=== PATIENT | female | born 1990 | race Caucasian/White ===

== ENCOUNTER 2023-10-17 12:24 | Inpatient (IN) | payer OTHER ==
--- NOTE | 2023-10-16 22:25 | NUR ---
Pt deep breathing and focussing with contractions. SVE as noted, tolerates SVE without without flinching. 2228 Anesthesia in room, epidural bolus per pump.
[~2023-10-17] VITALS: Ht 157.5 cm; Wt 93.2 kg
[2023-10-17] VITALS (26 sets, daily range): BP systolic 102–147; BP diastolic 56–89; PULSE 60–97; TEMP 97.7–98.8
[2023-10-17] MEDS ORDERED: PRENATAL TABLET PO (12:47)
[2023-10-17] MEDS ORDERED: TYLENOL 325MG325 MG PO (12:47)
[2023-10-17] MEDS ORDERED: PROFERRIN ES12 MG PO (12:47)
[2023-10-17] MEDS ORDERED: LR 1,000 ML IV SCH (13:15)
[2023-10-17] MEDS ORDERED: LR & Oxytocin 500 ML IV SCH (13:15)
[2023-10-17 14:10] LABS: BASO % 0.3 % (0.0-2.0); EOS % 0.3 % (0.0-4.0); GRAN # 5.1 K/mm3 (1.4-6.5); HEMOGLOBIN 12.5 g/dl (12.5-16.0); LYMPH # 1.5 K/mm3 (1.2-3.4); LYMPH % 20.4 % (20.0-51.0); MEAN CELL VOLUME 89 fl (80.0-100.0); MEAN CORPUSCULAR HEMOGLOBIN 31 pg (27-31); MEAN CORPUSCULAR HGB CONC 34 g/dl (33.0-37.0); MONO # 0.6 K/mm3 (0.1-0.6); MONO % 8.6 % (1.7-9.3); PLATELET COUNT 209 K/mm3 (130-400); REDCELL DISTRIBUTION WIDTH-CV 13.9 % (11.5-14.5)
[2023-10-17 14:11] LABS: HEMATOCRIT 36.5 % (37.0-47.0)
--- NOTE | 2023-10-17 17:23 | NUR ---
PATIENT HAD A 4 CTX IN A ROW THAT WERE 1 MIN APART THAT DID NOT GO DOWN TO BASELINE AND THEN BABY HAD A PROLONGED DECELERATION FROM 1641 TILL 1646. PATIENT WAS MOVED FROM SITTING TO STANDING POSITION AT 1642, THEN LEFT SIDE LYING POSITION AT 1643 AND THEN KNEE CHEST POSITION AT 1645. PITOCIN WAS OFF AT 1645. BABYS HEART RATE RECOVERED AND PATIENT STAYED IN KNEE CHEST UNTIL 1710. THEN PATIENT MOVED TO BATHROOM TO VOID. PATIENTS FHT'S RECOVERED AND ACCELS NOTED AT 1703 AND 1704. WILL CONTINUE TO MONITOR
--- NOTE | 2023-10-17 19:18 | NUR ---
pt standing at bedside, FHt's to 70's with loss of tracing. briefly returns to baseline. to bathroom then into bed. To WR Deceleration to 70's returns to baseline after 60seconds at aman. To LL.
--- NOTE | 2023-10-17 19:45 | NUR ---
Dr Guzman at bedside, views FHT's, reviews plan of care, questions invited and answered.
--- NOTE | 2023-10-17 20:49 | NUR ---
Off monitor, up to bathroom. Pt deep breathing with ctx. Reports ctx pain a 5 on 1-10 scale. attentive at bedside.
--- NOTE | 2023-10-17 21:48 | NUR ---
C.Nataly VP [employer] into room for epidural placement. Pt moved to edge of epidural placement. EFM tracing maternal HR .
[2023-10-17] MEDS ORDERED: ROPivacaine PF 0.2% 200 ML IV ONE (21:59)
[2023-10-17] MEDS ORDERED: ePHEDrine 50 MG/10 ML VIAL IV PRN (22:30)
[2023-10-17] MEDS ORDERED: diphenhydrAMINE 50 MG/ML 1 ML VIAL IV PRN (22:30)
[2023-10-17] MEDS ORDERED: Ondansetron 4 MG/2 ML VIAL IV PRN (22:30)
[2023-10-17] MEDS ORDERED: Naloxone 0.4 MG/ML VIAL IV PRN (22:30)
[2023-10-17] MEDS ORDERED: diphenhydrAMINE 25 MG CAP PO PRN (22:30)
--- NOTE | 2023-10-17 22:47 | NUR ---
FHT's to 70's x 40 seconds, rebounds to 100's for 50 seconds, to SF, then rl to 60's x 70 seconds, loss of tracing, adjusting monitors. PCR.Suppes and PCR.Prior into room to assist. LR at bolus rate [address] FSE, records artifact, connestions checked. External monitor showed shoulder to 160's then down to 90's before attempting FSE placement. 225 FSE not tracing. External monitor recording at 130's.
--- NOTE | 2023-10-17 23:00 | NUR ---
FSE contines tracing intermittently, cords changed, continues not tracing. FSE dc'd. 2306 New FSE placed. Camp catheter placed. FSE not tracing, cords changed, not recording. External monitor tracing 120's.
[2023-10-18] VITALS (35 sets, daily range): BP systolic 97–153; BP diastolic 53–73; PULSE 71–110; TEMP 97.6–98.9
--- NOTE | 2023-10-18 01:36 | NUR ---
Dr Guzman into room, sve as noted, reviews EFM tracing
--- NOTE | 2023-10-18 02:50 | NUR ---
SVE complete/+1. Pt unable to move legs or feel ctx. Will let labor down and reasess.
--- NOTE | 2023-10-18 05:23 | NUR ---
Dr Guzman called to come assess pushing/progress. head descending with pushing, still moves back up, caput increasing. Suspected macrosomia by Record. [address] Guzman while pushing. Discusses vacuum assist, pt and spouse consent. 0535 Perineal prep completed, straight cath by Dr Guzman with scant amount urine return. 0538 Dr Guzman applies vacuum. [address] Guzman, father cuts cord.
--- NOTE | 2023-10-18 05:48 | NUR ---
Placenta delivers spont and intact. Pitocin gtt to bolus rate. 0557 perineal repair complete. Straight cath by Dr Guzman with moderate amount yellow urine. Ice pack to perineum and bed together.
[2023-10-18] MEDS ORDERED: Witch Hazel 50% Pads Bulk TUB TP PRN (06:15)
[2023-10-18] MEDS ORDERED: Acetaminophen 500 MG TAB PO SCH (06:15)
[2023-10-18] MEDS ORDERED: Phenylephrine/Mineral Oil/Petrolatum 57 GM TUBE RC PRN (06:15)
[2023-10-18] MEDS ORDERED: oxyCODONE 5 MG TAB PO PRN (06:15)
[2023-10-18] MEDS ORDERED: Mag/Al Hydrox/Simeth Susp 30 ML CUP PO PRN (06:15)
[2023-10-18] MEDS ORDERED: Loratadine 10 MG TAB PO PRN (06:15)
[2023-10-18] MEDS ORDERED: Ibuprofen 600 MG TAB PO SCH (06:15)
[2023-10-18] MEDS ORDERED: Magnes Hydrox (MOM) 80 MG/ML 30 ML CUP PO PRN (06:15)
[2023-10-18] MEDS ORDERED: Measles/Mumps/Rubella Virus Vaccine Live w Diluent 0.5 ML VIAL SQ SCH (06:15)
[2023-10-18] MEDS ORDERED: Naloxone 0.4 MG/ML VIAL IV PRN (06:15)
[2023-10-18] MEDS ORDERED: Sennosides/Docusate 8.6-50 MG TAB PO SCH (08:00)
--- NOTE | 2023-10-18 09:12 | NUR ---
0845 RN X2 BEDSIDE ASSISTING PT TO BATHROOM VIA [id number]. PT UNABLE TO VOID AT THIS TIME BUT ANAID CARE PROVIDED AND PT MOVED TO VIA WHEELCHAIR WITH SPOUSE AND INFANT. POC DISCUSSED WITH PT AND PT VERBALIZES UNDERSTANDING
--- NOTE | 2023-10-18 10:53 | NUR ---
0968 PATIENT UP TO BATHROOM WITH ASSIST OF RN USING SIT TO STAND. PATIENT FELT A FEW DROPS WERE VOIDED BUT WAS NOT MEASURED. 1045 PATIENT WAS BLADDER SCANNED WITH ESTIMATED AMOUNT IN BLADDER 684 ML. PATIENT ASSISTED TO AMBULATE TO BATHROOM X2 RN. PATIENT VOIDED 200 IN HAT BUT HAT WAS MISSED WITH OTHER HALF OF VOID. PATIENT VOIDED FOR A GOOD AMOUNT OF TIME AND FELT THAT SHE WAS ABLE TO EMPTY HER BLADDER WITH THIS VOID.
[2023-10-18] MEDS ORDERED: Rho(D) Imm Globulin 1,500 UNITS (300 MCG)/2 ML SYRINGE IV\\IM SCH (17:00)
[2023-10-18] MEDS ORDERED: traZODone 50 MG TAB PO PRN (21:00)
[2023-10-19 01:15] VITALS: BP 107/56; PULSE 79; TEMP 98.2
[2023-10-19] MEDS ORDERED: IBU600 MG PO (08:23)
[2023-10-19 08:30] VITALS: BP 97/74; PULSE 77; TEMP 98.1
--- NOTE | 2023-10-19 10:19 | NUR ---
Initial visit; Parents thanked [employer] for offering congratulations and God's blessings for the of their son. [employer] thanked family for choosing [facility].
[2023-10-19 12:20] VITALS: BP 96/61; PULSE 84
== END 2023-10-19 17:00 | disposition home or self-care (01) | DRG 807 ==
LOC: LDRO 12:24 → LDR 13:11 → OB 13:11
PROVIDERS: ADMIT Obstetrics & Gynecology
PROC: 10D07Z6 Extraction of Products of Conception, Vacuum, Via Natural or Artificial Opening (ICD-10-PCS; principal; 2023-10-18)
PROC: 0KQM0ZZ Repair Perineum Muscle, Open Approach (ICD-10-PCS; 2023-10-18)
DX: O48.0 Post-term pregnancy (principal); Z37.0 Single live birth; O76 Abnormality in fetal heart rate and rhythm complicating labor and delivery; Z3A.40 40 weeks gestation of pregnancy; O99.02 Anemia complicating childbirth; O70.1 Second degree perineal laceration during delivery; O75.81 Maternal exhaustion complicating labor and delivery; O77.0 Labor and delivery complicated by meconium in amniotic fluid; O35.8XX0 Maternal care for other (suspected) fetal abnormality and damage, not applicable or unspecified
CPT/HCPCS: J2590; J2791; J2795; J7120